=== PATIENT | male | born 1955 | race Caucasian/White ===

== ENCOUNTER → 2019-04-09 | Outpatient (CLI) | payer OTHER | LOC: COL.RAD 09:33 | DX: J34.1 Cyst and mucocele of nose and nasal sinus (principal); R41.82 Altered mental status, unspecified ==

== ENCOUNTER 2020-11-07 06:44 | Day surgery (SDC) | payer OTHER ==
[~2020-11-07] VITALS: Ht 167.6 cm; Wt 112.2 kg
[2020-11-07] MEDS ORDERED: ABILIFY 10MG TA10 MG PO (07:22)
[2020-11-07] MEDS ORDERED: BUSPAR DIVIDOSE15 MG PO (07:23)
[2020-11-07] MEDS ORDERED: SYNTHROID0.075 MG/T PO (07:24)
[2020-11-07] MEDS ORDERED: KLONOPIN 1MG1 MG PO (07:24)
[2020-11-07] MEDS ORDERED: MICARDIS80 MG PO (07:24)
[2020-11-07] MEDS ORDERED: APRESOLINE 25MG25 MG PO (07:25)
[2020-11-07] MEDS ORDERED: LIPITOR 80MG80 MG PO (07:25)
[2020-11-07] MEDS ORDERED: NORVASC 10MG10 MG PO (07:25)
[2020-11-07] MEDS ORDERED: ASPIRIN 81M81 MG/TA2 PO (07:26)
[2020-11-07] MEDS ORDERED: VIAGRA50 M1 PO (07:26)
[2020-11-07] MEDS ORDERED: AMBIEN 5MG TABLE5 MG PO (07:26)
[2020-11-07] MEDS ORDERED: THE MEDICINE S200 M2 PO (07:27)
[2020-11-07] MEDS ORDERED: VITAMINC500CH PO (07:27)
[2020-11-07] MEDS ORDERED: CENTRUM SILVER1 CTB PO (07:27)
[2020-11-07] MEDS ORDERED: VITAMIN D31000 I1 PO (07:28)
[2020-11-07] MEDS ORDERED: B COMPLEX #11 TA1 PO (07:28)
[2020-11-07] MEDS ORDERED: OMEGA-3 1000 MG1 CAP PO (07:28)
[2020-11-07] MEDS ORDERED: FIBERCON PO (07:28)
[2020-11-07 07:29] VITALS: BP 159/93; PULSE 87; TEMP 98.4
[2020-11-07] MEDS ORDERED: PHARMASSURE ZIN50 MG PO (07:29)
[2020-11-07] MEDS ORDERED: TURMERIC500 MG PO (07:29)
[2020-11-07 09:03] VITALS: BP 116/98; PULSE 88
--- NOTE | 2020-11-07 09:03 | NUR ---
Patient returns to [facility] per cart and is awake and alert. Transfers from cart to recliner with standby assist. temp 97.1 and room air sats 97%. Denies nausea or abdominal pain. IV fludid infusing. Spouse in room.
--- NOTE | 2020-11-07 09:05 | NUR ---
Dr. Maxwell in the room talking with patient and spouse. All questions answered.
[2020-11-07 09:18] VITALS: BP 148/87; PULSE 74
--- NOTE | 2020-11-07 09:18 | NUR ---
Tolerated orange juice. Declines snack. States they are going out for breakfast. IV discontinued and site is free of redness. Dressed and ready for discharge.
--- NOTE | 2020-11-07 09:27 | NUR ---
Dismissed given and voices understanding of these.
--- NOTE | 2020-11-07 09:30 | NUR ---
Dismissal instructions signed. Patient dismissed to home driven by spouse and assisted into vehicle with instructions in hand.
== END 2020-11-07 09:30 | disposition home or self-care (01) ==
LOC: SDCO 06:44
DX: Z12.11 Encounter for screening for malignant neoplasm of colon (principal); D12.3 Benign neoplasm of transverse colon; D12.5 Benign neoplasm of sigmoid colon; K57.30 Diverticulosis of large intestine without perforation or abscess without bleeding; K64.1 Second degree hemorrhoids; F41.9 Anxiety disorder, unspecified; F32.9 Major depressive disorder, single episode, unspecified; E78.5 Hyperlipidemia, unspecified; I10 Essential (primary) hypertension; E03.9 Hypothyroidism, unspecified; G47.33 Obstructive sleep apnea (adult) (pediatric); E11.9 Type 2 diabetes mellitus without complications; F40.00 Agoraphobia, unspecified; J45.909 Unspecified asthma, uncomplicated; Z79.899 Other long term (current) drug therapy; Z79.82 Long term (current) use of aspirin; F42.9 Obsessive-compulsive disorder, unspecified; Z90.89 Acquired absence of other organs; Z83.3 Family history of diabetes mellitus; Z83.71 Family history of colonic polyps; Z82.61 Family history of arthritis
CPT/HCPCS: J7120

== ENCOUNTER → 2021-08-14 | Outpatient (CLI) | payer OTHER ==
[~2021-08-14] MED LIST: ABILIFY 10MG TA10 MG PO; AMBIEN 5MG TABLE5 MG PO; APRESOLINE 25MG25 MG PO; ASPIRIN 81M81 MG/TA2 PO; B COMPLEX #11 TA1 PO; BUSPAR DIVIDOSE15 MG PO; CENTRUM SILVER1 CTB PO; FIBERCON PO; KLONOPIN 1MG1 MG PO; LIPITOR 80MG80 MG PO; MICARDIS80 MG PO; NORVASC 10MG10 MG PO; OMEGA-3 1000 MG1 CAP PO; PHARMASSURE ZIN50 MG PO; SYNTHROID0.075 MG/T PO; THE MEDICINE S200 M2 PO; TURMERIC500 MG PO; VIAGRA50 M1 PO; VITAMIN D31000 I1 PO; VITAMINC500CH PO
== END ==
LOC: COL.PUL 07:31
DX: R06.02 Shortness of breath (principal); R06.2 Wheezing; Z87.09 Personal history of other diseases of the respiratory system